=== PATIENT | female | born 1940 | race Hispanic/Latino ===

== ENCOUNTER 2017-06-08 07:38 | Outpatient (CLI) | payer MEDICARE ==
[2017-06-08] MEDS ORDERED: Iopamidol 370 76% 100 ML VIAL ONE (13:00)
== END 2017-06-08 07:39 | disposition home or self-care (01) ==
LOC: BICCT 07:38
PROVIDERS: ATTEND Family Medicine
DX: E27.9 Disorder of adrenal gland, unspecified (principal); K76.0 Fatty (change of) liver, not elsewhere classified; N28.1 Cyst of kidney, acquired
CPT/HCPCS: 74170

== ENCOUNTER 2017-10-18 21:24 | Inpatient (IN) | payer MEDICARE ==
--- NOTE | 2017-10-18 22:37 | RAD ---
HIP LEFT TWO VIEWS: 10/18/17 INDICATION: History of fall with left hip pain. COMPARISON: AP pelvic radiograph dated 08/02/16. IMPRESSION: 1. There is a mildly displaced left anterior iliac wing fracture. This is mildly comminuted and extends from the mid to posterior aspect of the iliac wing through the anterior superior iliac spine. No evidence of acetabular extension seen. 2. Stable left total hip arthroplasty with associated cerclage band. The displaced ununited left greater trochanteric fracture is unchanged in position from the comparsion. 3. Diffuse osteopenia. POS: [facility]
[2017-10-18] MEDS ORDERED: Morphine 10 MG/ML VIAL ONE (22:59)
--- NOTE | 2017-10-18 23:25 | RAD ---
CHEST ONE VIEW PORTABLE: 10/18/17 INDICATION: Preop for fall with left hip pain. COMPARISON: 11/30/16. IMPRESSION: No acute cardiopulmonary abnormality. COMMENTS: Chronic lung changes are stable to the comparison. Heart size and pulmonary vasculature are within no rmal limits. There is a suture anchor within the right humeral head likely related to prior rotator c uff repair. There is mild thoracolumbar scoliosis and spondylosis which is stable. POS: [facility]
[2017-10-18 23:45] LABS: #Basophils 0.1 thou/uL (0.0-0.2); #Lymphocytes 1.1 thou/uL (1.20-3.40); #Monocytes 0.5 thou/uL (0.11-0.59); #Neutrophils 9.9 thou/uL (1.40-6.50); %Basophils 0.5 % (0.0-1.0); %Eosinophils 0.3 % (0.0-10.0); %Lymphocytes 9.7 % (21.0-51.0); %Monocytes 4.7 % (0.0-10.0); %Neutrophils 84.9 % (42.0-75.0); Mean Corpuscular HGB CONC 35.4 g/dL (32.0-36.0); Mean Corpuscular Volume 87.6 fL (78.0-98.0); Platelet Count 187 thou/uL (130-400); RBC Distribution Width 12.6 % (11.5-14.5); Red Blood Cell (RBC) Count 4.19 mill/uL (4.20-5.40); White Blood Cell (WBC) Count 11.6 thou/uL (4.8-10.8)
[2017-10-19 00:05] LABS: ALT (SGPT) 38 U/L (8-55); AST (SGOT) 29 U/L (5-34); Albumin 4.3 g/dL (3.4-4.8); Alkaline Phosphatase 70 U/L (40-150); Anion Gap 17 mmol/L (10-20); BUN (Urea Nitrogen) 17 mg/dL (9.8-20.1); Bilirubin, Total 0.5 mg/dL (0.2-1.2); Calc. Creatinine Clearance 0 mL/min (70-130); Calcium 9.3 mg/dL (7.8-10.44); Carbon Dioxide 23 mmol/L (23-31); Chloride 105 mmol/L (98-107); Estimated GFR-MDRD 78; Globulin 2.7 g/dL (2.4-3.5); Glucose 311 mg/dL (83-110); Sodium 141 mmol/L (136-145)
[2017-10-19] MEDS ORDERED: traMADol HCl 50 MG TAB PO PRN (00:35)
[2017-10-19] MEDS ORDERED: Dextrose 5% in Water 1,000 ML IV PRN (00:37)
[2017-10-19] MEDS ORDERED: Dextrose 50% Abboject 50 ML SYRINGE SLOW IVP PRN (00:37)
[2017-10-19] MEDS ORDERED: Acetaminophen 500 MG TAB PO SCH (00:45)
[2017-10-19] MEDS ORDERED: hydrALAZINE 20 MG/ML VIAL SLOW IVP PRN (00:54)
[2017-10-19] MEDS ORDERED: Insulin Regular 300 UNITS/3 ML VIAL SC SCH (01:00)
[2017-10-19] MEDS ORDERED: Ibuprofen 600 MG TAB PO SCH (02:00)
[2017-10-19] MEDS: traMADol HCl 50 MG TAB PO SCH ×4 (02:05→20:32)
[2017-10-19] MEDS: Acetaminophen 500 MG TAB PO SCH ×4 (02:06→20:31)
[2017-10-19 02:50] VITALS: BMI 21.9
[2017-10-19] MEDS: Ondansetron ODT 4 MG TAB PO PRN ×2 (03:35→11:04)
[2017-10-19] MEDS: Ibuprofen 600 MG TAB PO SCH ×3 (03:44→20:31)
[2017-10-19 04:30] LABS: #Lymphocytes 1.1 thou/uL (1.20-3.40); #Monocytes 0.4 thou/uL (0.11-0.59); #Neutrophils 6.9 thou/uL (1.40-6.50); %Basophils 0.6 % (0.0-1.0); %Eosinophils 0.2 % (0.0-10.0); %Lymphocytes 13.3 % (21.0-51.0); %Monocytes 4.7 % (0.0-10.0); %Neutrophils 81.3 % (42.0-75.0); Mean Corpuscular HGB CONC 35.2 g/dL (32.0-36.0); Mean Corpuscular Hemoglobin 30.9 pg (27.0-31.0); Mean Corpuscular Volume 87.8 fL (78.0-98.0); Mean Platelet Volume 7.2 fL (7.4-10.4); Platelet Count 181 thou/uL (130-400); RBC Distribution Width 12.5 % (11.5-14.5); White Blood Cell (WBC) Count 8.4 thou/uL (4.8-10.8)
[2017-10-19 04:57] LABS: Anion Gap 15 mmol/L (10-20); BUN (Urea Nitrogen) 15 mg/dL (9.8-20.1); Calc. Creatinine Clearance 63 mL/min (70-130); Calcium 9.6 mg/dL (7.8-10.44); Carbon Dioxide 25 mmol/L (23-31); Chloride 106 mmol/L (98-107); Estimated GFR-MDRD Greater than 90; Glucose 224 mg/dL (83-110); Potassium 3.4 mmol/L (3.5-5.1); Sodium 143 mmol/L (136-145)
--- NOTE | 2017-10-19 05:01 | HP ---
DATE OF ADMISSION: 10/19/2017 ATTENDING PHYSICIAN: Dr. Prieto TRAUMA ACTIVATION: Not applicable. HISTORY OF PRESENT ILLNESS: This is a 77-year-old female who presented to [place] status post fall. The patient is a primarily Romanian speaking, elderly female with a history of vertigo whose da ughter at bedside provided the majority of the history. Per patient and daughter she was attempting to ambulate from her wheelchair, had an episode of vertigo, became unsteady and slipped and fell in t he bathtub. She landed on her left side. She denies head injury or loss of consciousness. She was evaluated in the emergency room and found to have a left iliac wing fracture. Orthopedic Surgery was notified and Trauma Services was asked to admit. Upon my evaluation, the patient has a chief compla int of left lateral hip pain. Pain is currently rated as a 6/10. ALLERGIES: ASPIRIN. CHRONIC MEDICAL ILLNESSES: Include hypertension, diabetes, hyperlipidemia, osteoarthritis, vertigo. MEDICATIONS: Lisinopril 30 mg p.o. daily, raloxifene 60 mg q.4h. p.r.n. pain, atorvastatin 10 mg p.o . daily, hydrochlorothiazide 12.5 mg p.o. daily, meclizine 25 mg 2 tabs p.o. p.r.n., Zofran 4 mg q.6 hours p.r.n. nausea, Ultram 50 mg p.o. daily, cyclobenzaprine 10 mg p.o. t.i.d., omeprazole 20 mg p.o . daily, metformin 1000 mg b.i.d., and ferrous sulfate 325 b.i.d. PAST SURGICAL HISTORY: Significant for left hip replacement, right shoulder repair, and hysterectomy . SOCIAL HISTORY: Patient lives with her son, primarily wheelchair bound. Denies alcohol, tobacco or illicit drug use. FAMILY HISTORY: Noncontributory in this age patient. REVIEW OF SYSTEMS: A 10 point review of systems was obtained and essentially negative except as benjamin cated in the HPI. PHYSICAL EXAMINATION: VITAL SIGNS: On evaluation heart rate 100, blood pressure 166/73, O2 sat 98% on room air, respirator y rate of 18. GENERAL: Elderly appearing female in no acute distress, resting in bed. HEAD: Normocephalic, atraumatic. EYES: Pupils are PERRL. Extraocular movements are intact. NECK: Supple. Trachea is midline. There is no midline tenderness to palpation. Range of motion wi thin normal limits for patient. CHEST: Chest is atraumatic, nontender to palpation. Normal work of breathing. Symmetric rise. CARDIOVASCULAR: Regular rate and rhythm, no obvious murmurs, rubs or gallops. GASTROINTESTINAL: Abdomen is atraumatic, soft, nontender, nondistended. BACK: Reported as being within normal limits. EXTREMITIES: Bilateral upper extremities within normal limits. Bilateral lower extremities within n ormal limits. Palpation of the pelvis demonstrates a left lateral hip pain with tenderness to palpat ion. Range of motion of the left hip is limited secondary to pain. She is neurovascularly intact di stal to the site of her injury. NEUROLOGIC: GCS is 15. No focal deficit is noted. LABORATORY DATA: WBC 11.6, hemoglobin 13.0, hematocrit 36.7, platelet count 187. Sodium 141, potass ium 4.0, chloride 105, carbon dioxide 23, BUN 17, creatinine 0.72, glucose 311. EKG with normal sinus rhythm, no ST elevation or signs of ischemia. RADIOLOGIC FINDINGS: Chest x-ray without acute cardiopulmonary process or traumatic injury. Hip x-r ay was read by Radiology as having a mildly displaced left anterior iliac wing fracture and osteopeni a. ASSESSMENT: 1. Status post mechanical fall. 2. Acute traumatic pain. 3. Left iliac wing fracture. 4. History of vertigo. 5. History of hypertension. 6. Diabetes with hyperglycemia. 7. History or osteoarthritis. PLAN: Admit to [place] [id number] for pain control and physical therapy and occupational therapy. I have disc ussed the case with Orthopedic Surgery. They plan for nonoperative treatment of the fracture at this time. They recommended weightbearing as tolerated. The patient should have a consistent carbohydra te diet. Sliding scale insulin, 10 units insulin now. Recheck blood sugar in 1 hour. Reconcile walker e medications. Plan for admission were discussed with the patient and family at bedside. All questions were answere d at the time of this dictation. Trauma attending has been notified of admission.
[2017-10-19 08:24] LABS: Phosphorus 3.3 mg/dL (2.3-4.7)
[2017-10-19] MEDS: Polyethylene Glycol 3350 17 GM Packet PO SCH (08:35)
[2017-10-19] MEDS: Senokot S 8.6-50 MG TAB PO SCH ×2 (08:35→20:32)
[2017-10-19] MEDS: Famotidine 20 MG TAB PO SCH ×2 (08:35→20:32)
[2017-10-19] MEDS ORDERED: Potassium Chloride 40 MEQ in Premix Bag 1 BAG IVPB SCH (08:45)
[2017-10-19] MEDS: Potassium Chloride 20 MEQ in Premix Bag 1 BAG IVPB SCH ×2 (10:06→14:55)
[2017-10-19] MEDS: Scopolamine 1.5 mg/72 hour Patch TD SCH (14:56)
--- NOTE | 2017-10-19 17:28 | CON ---
DATE OF CONSULTATION: 10/19/2017 ORTHOPEDIC CONSULTATION REQUESTING PHYSICIAN: Chu Prieto M.D. HISTORY OF PRESENT ILLNESS: The patient is a 77-year-old female who was examined while in her hospit al bed at [place] with her daughter at bedside. They report that on the evening of 10/18/2017, daysi contreras had an episode of vertigo became unsteady and slipped and fell in the bathtub, landing on her left side. There was no loss of consciousness. She had immediate left flank pain. Upon arrival at [facility] in evaluation, she was found to have pain at the left iliac wing and x-ray confirmed an iliac w ing fracture. As such, orthopedic consultation requested. The patient was unable to mobilize and christiana contreras family does not wish to pursue rehabilitation or residential and as such was admitted for pain control. PAST MEDICAL HISTORY: Remarkable for hypertension, diabetes, hyperlipidemia, and vertigo. PAST SURGICAL HISTORY: Remarkable for left total hip arthroplasty, right shoulder surgery as well as hysterectomy. MEDICATIONS: Lisinopril, raloxifene, atorvastatin, hydrochlorothiazide, meclizine, Zofran, Ultram, c yclobenzaprine, omeprazole, metformin, and iron sulfate. ALLERGIES: ASPIRIN. SOCIAL HISTORY: She lives with her son and mobilizes primarily with a wheelchair. Denies alcohol, t obacco or illicit drug use. FAMILY HISTORY: Noncontributory. REVIEW OF SYSTEMS: Denies recent fevers, chills or sweats. Denies chest pain or shortness of breath . She denies numbness or tingling in the lower extremities. PHYSICAL EXAMINATION: VITAL SIGNS: Temperature of 98.1, heart rate of 83, respiratory rate of 22, and blood pressure 151/7 1. HEENT: Atraumatic and normocephalic. HEART: Shows a regular rate and rhythm without murmur. LUNGS: Clear to auscultation bilaterally with good breath sounds. CHEST: Chest wall is nontender. PELVIS: Remarkable for severe point tender pain of the left iliac wing with any attempt to compressi on of the pelvis. The anterior superior iliac spine feels roughly symmetric when compared to the con tralateral side. The hip joint itself has relatively supple range of motion except for pain when I b ring the hip into full extension. The knee, ankle and foot on the left side are atraumatic. X-RAYS: AP lateral hip x-ray remarkable for a mildly displaced left anterior iliac wing fracture. ASSESSMENT: A 77-year-old, status post ground level fall in bathtub sustaining iliac wing fracture w ith minimal displacement. PLAN: Given the lack of displacement as well as the patient's baseline level of activity, I believe that nonsurgical management is a reasonable choice for this fracture. The patient may weightbear as tolerated bilateral lower extremities. We will mobilize her with physical therapy and when on oral p ain medications and mobilizing comfortably allow patient to be discharged to home today. I believe a ll questions were answered from both patient and her daughter.
[2017-10-19] MEDS: Meclizine HCl 25 MG TAB PO SCH (20:30)
[2017-10-19] MEDS: Enoxaparin Sodium 40 MG/0.4 ML SYRINGE SC SCH (20:30)
[2017-10-19] MEDS: Cyclobenzaprine 10 MG TAB PO SCH (20:31)
--- NOTE | 2017-10-19 21:33 | PRG ---
DATE OF SERVICE: 10/19/2017 ATTENDING PHYSICIAN: Sigifredo Tse DO. SUBJECTIVE: Ms. Serrano is a 77-year-old lady who has a history of vertigo who apparently slipped and fell in her bathtub last p.m. She was evaluated in the ER. Workup identified a left iliac wing fracture. She was seen by Orthopedic Surgery who recommended nonoperative treatment. She was admitted to the floor for pain control. PT and OT have been ordered. She still complains of some dizziness and nausea. OBJECTIVE: VITAL SIGNS: Temperature 97.3, pulse 86, respirations 12, O2 sat 94% on room air, blood pressure 145/81. GENERAL: Elderly female, lying on bed, in no acute distress. HEENT: Atraumatic, normocephalic. CARDIOVASCULAR: Regular rate and rhythm. CHEST: Respirations even and unlabored. Breath sounds normal. ABDOMEN: Soft, nontender, nondistended. Pain to left pelvis with palpation. EXTREMITIES: Moves all extremities. Cap refill brisk in all extremities. Neurovascularly intact. NEUROLOGIC: GCS 15. Awake, alert, oriented x3. No focal deficit. LABORATORY STUDIES: CBC, WBC 8.4, RBC 4.20, hemoglobin 13, hematocrit 36.9, platelets 181,000. Chemistry, sodium 143, potassium 3.4, chloride 106, carbon dioxide 25, BUN 15, creatinine 0.59, glucose 224, calcium 9.6, phosphorus 3.3, magnesium 2.0. ASSESSMENT: 1. Status post ground level fall. 2. Left iliac wing fracture. 3. Acute traumatic pain. 4. History of vertigo. 5. History of hypertension. 6. History of diabetes. 7. History of osteoarthritis. PLAN: 1. Continue oral analgesia. 2. Add scopolamine for dizziness and nausea. 3. Restart home medications. 4. Rehab referral for discharge planning. 5. Lovenox for DVT prophylaxis. 6. Pepcid for gastritis prophylaxis. 7. Replace electrolytes. Monitor and replace as indicated. 8. Restart home medications as indicated. The patient was seen and examined with Dr. Tse, who agrees with plan. [facility]
[2017-10-19] MEDS: HumaLOG 300 UNITS/3 ML VIAL SC PRN (22:29)
[2017-10-20] MEDS: traMADol HCl 50 MG TAB PO SCH ×4 (02:27→19:31)
[2017-10-20] MEDS: Acetaminophen 500 MG TAB PO SCH ×4 (02:29→19:31)
[2017-10-20] MEDS: Ibuprofen 600 MG TAB PO SCH ×3 (03:38→20:25)
[2017-10-20 05:31] LABS: Anion Gap 10 mmol/L (10-20); BUN (Urea Nitrogen) 13 mg/dL (9.8-20.1); Calc. Creatinine Clearance 70 mL/min (70-130); Calcium 8.9 mg/dL (7.8-10.44); Carbon Dioxide 27 mmol/L (23-31); Chloride 105 mmol/L (98-107); Estimated GFR-MDRD Greater than 90; Glucose 163 mg/dL (83-110); Magnesium 1.7 mg/dL (1.6-2.6); Phosphorus 3.9 mg/dL (2.3-4.7); Potassium 3.8 mmol/L (3.5-5.1); Sodium 138 mmol/L (136-145)
[2017-10-20] MEDS: Ferrous Sulfate 325 MG TAB PO SCH (08:09)
[2017-10-20] MEDS: Hydrochlorothiazide 25 MG TAB PO SCH (08:09)
[2017-10-20] MEDS: Senokot S 8.6-50 MG TAB PO SCH ×2 (08:10→20:26)
[2017-10-20] MEDS: Cyclobenzaprine 10 MG TAB PO SCH ×3 (08:10→20:26)
[2017-10-20] MEDS: Famotidine 20 MG TAB PO SCH ×2 (08:10→20:25)
[2017-10-20] MEDS: Atorvastatin Calcium 10 MG TAB PO SCH (08:10)
[2017-10-20] MEDS: Lisinopril 10 MG TAB PO SCH (08:11)
[2017-10-20] MEDS: Meclizine HCl 25 MG TAB PO SCH ×2 (08:11→20:26)
[2017-10-20] MEDS: Ondansetron ODT 4 MG TAB PO PRN (08:12)
[2017-10-20] MEDS: Polyethylene Glycol 3350 17 GM Packet PO SCH (09:54)
[2017-10-20] MEDS: Ascorbic Acid 500 mg Chewable Tablet PO SCH (09:54)
[2017-10-20] MEDS: HumaLOG 300 UNITS/3 ML VIAL SC PRN ×3 (13:04→20:27)
--- NOTE | 2017-10-20 17:29 | PRG ---
DATE OF SERVICE: 10/20/2017 ATTENDING PHYSICIAN: Dr. Sigifredo Tse. SUBJECTIVE: Ms. Serrano is a 77-year-old lady who has a history of vertigo who slipped and fell in he r bathtub 2 days ago. She sustained a left iliac wing fracture. Nonoperative management was recomme nded by Orthopedic Surgery. She was admitted to the hospital for pain control and physical therapy. She has been mobilizing with physical therapy. She initially complained of significant nausea and d izziness; however, this has resolved with scopolamine patch. PT and OT have been mobilizing with the patient. She reports the pain is better controlled. OBJECTIVE: VITAL SIGNS: Temperature 98.1, pulse 81, respirations 18, O2 sat 94% room air, blood pressure 132/77 . GENERAL: Elderly female lying in bed, in no acute distress. HEENT: Atraumatic, normocephalic. CARDIOVASCULAR: Regular rate and rhythm. CHEST: Respirations even and unlabored. Breath sounds normal. ABDOMEN: Soft, nontender, nondistended. Pain to the left pelvis with palpation or movement of left hip. EXTREMITIES: Moves all extremities well. Cap refill brisk in all extremities. Neurovascularly inta ct. NEUROLOGIC: GCS 15. Awake, alert, oriented x3. No focal deficit. ASSESSMENT: 1. Status post ground level fall. 2. Left iliac wing fracture. 3. Acute traumatic pain, improving. 4. History of vertigo. 5. History of hypertension. 6. History of diabetes. 7. History of osteoarthritis. PLAN: 1. Continue oral analgesia. 2. Continue mobilizing with PT, OT. 3. Continue Lovenox for DVT prophylaxis. 4. Continue Pepcid for gastritis prophylaxis. 5. Discussed with . The patient is pending approval for disposition to rehabilitation. Donny arellano this will happen in the next 1-2 days. The patient was seen and examined with Dr. Tse, who ag best with plan.
[2017-10-20] MEDS: Enoxaparin Sodium 40 MG/0.4 ML SYRINGE SC SCH (20:25)
[2017-10-21] MEDS: Acetaminophen 500 MG TAB PO SCH ×4 (01:40→19:05)
[2017-10-21] MEDS: traMADol HCl 50 MG TAB PO SCH ×4 (01:41→19:05)
[2017-10-21] MEDS: Ibuprofen 600 MG TAB PO SCH ×3 (04:17→21:50)
[2017-10-21] MEDS: HumaLOG 300 UNITS/3 ML VIAL SC PRN ×3 (05:35→18:19)
[2017-10-21] MEDS: Senokot S 8.6-50 MG TAB PO SCH ×2 (08:40→21:49)
[2017-10-21] MEDS: Ferrous Sulfate 325 MG TAB PO SCH (08:40)
[2017-10-21] MEDS: Ascorbic Acid 500 mg Chewable Tablet PO SCH (08:40)
[2017-10-21] MEDS: Polyethylene Glycol 3350 17 GM Packet PO SCH (08:40)
[2017-10-21] MEDS: Hydrochlorothiazide 25 MG TAB PO SCH (08:41)
[2017-10-21] MEDS: Lisinopril 10 MG TAB PO SCH (08:42)
[2017-10-21] MEDS: Cyclobenzaprine 10 MG TAB PO SCH ×3 (08:42→21:49)
[2017-10-21] MEDS: Atorvastatin Calcium 10 MG TAB PO SCH (08:43)
[2017-10-21] MEDS: Meclizine HCl 25 MG TAB PO SCH ×2 (08:43→21:49)
[2017-10-21] MEDS: Famotidine 20 MG TAB PO SCH ×2 (08:43→21:50)
[2017-10-21] MEDS: Enoxaparin Sodium 40 MG/0.4 ML SYRINGE SC SCH (21:49)
[2017-10-22] MEDS: traMADol HCl 50 MG TAB PO SCH ×4 (01:55→19:32)
[2017-10-22] MEDS: Acetaminophen 500 MG TAB PO SCH ×4 (01:56→18:50)
[2017-10-22] MEDS: Ibuprofen 600 MG TAB PO SCH ×3 (03:17→20:38)
[2017-10-22] MEDS: HumaLOG 300 UNITS/3 ML VIAL SC PRN ×4 (06:45→21:17)
[2017-10-22] MEDS: Famotidine 20 MG TAB PO SCH ×2 (08:54→20:40)
[2017-10-22] MEDS: Ascorbic Acid 500 mg Chewable Tablet PO SCH (08:54)
[2017-10-22] MEDS: Ferrous Sulfate 325 MG TAB PO SCH (08:54)
[2017-10-22] MEDS: Atorvastatin Calcium 10 MG TAB PO SCH (08:54)
[2017-10-22] MEDS: Meclizine HCl 25 MG TAB PO SCH ×2 (08:55→20:39)
[2017-10-22] MEDS: Senokot S 8.6-50 MG TAB PO SCH ×2 (08:55→20:40)
[2017-10-22] MEDS: Cyclobenzaprine 10 MG TAB PO SCH ×3 (08:55→20:38)
[2017-10-22] MEDS: Polyethylene Glycol 3350 17 GM Packet PO SCH (08:56)
[2017-10-22] MEDS: Hydrochlorothiazide 25 MG TAB PO SCH (09:00)
[2017-10-22] MEDS: Lisinopril 10 MG TAB PO SCH (09:01)
[2017-10-22] MEDS: Scopolamine 1.5 mg/72 hour Patch TD SCH (13:45)
--- NOTE | 2017-10-22 20:22 | PRG ---
DATE OF SERVICE: 10/22/2017 SUBJECTIVE: The patient is status post ground level fall in which sustained an iliac wing fracture. She has been treated conservatively. Since being here, there were initial issues trying to get her pain controlled, which they are now controlled and there was discussion as far as placement. The con sensus in agreement with the family and now is that the patient will go home with home health. This is being arranged by case management and is predicted to happen tomorrow on Monday10/23/2017. PHYSICAL EXAMINATION: VITAL SIGNS: Temperature is 97.8, heart rate 82, blood pressure 108/55, respirations 16, oxygen satu ration 95% on room air. GENERAL: The patient is resting comfortably, has no complaints at this time. HEENT: Unremarkable. LUNGS: Clear to auscultation. HEART: Regular rate and rhythm. ABDOMEN: Soft, flat, nontender. EXTREMITIES: Neurovascularly intact x4. LABORATORY DATA: There are no labs or radiographs to review this morning. ASSESSMENT AND PLAN: 1. Status post ground level fall. 2. Left iliac wing fracture. 3. Multiple comorbidities. PLAN: Will be to continue supportive care, pain management as currently in place and we will await f inal placement decision and hopefully discharge home tomorrow.
[2017-10-22] MEDS: Enoxaparin Sodium 40 MG/0.4 ML SYRINGE SC SCH (20:50)
[2017-10-22] MEDS ORDERED: Enoxaparin Sodium 40 MG/0.4 ML SYRINGE SC SCH (21:00)
[2017-10-23] MEDS: traMADol HCl 50 MG TAB PO SCH ×3 (01:24→13:43)
[2017-10-23] MEDS: Acetaminophen 500 MG TAB PO SCH ×3 (01:24→13:42)
[2017-10-23] MEDS: Ibuprofen 600 MG TAB PO SCH ×2 (04:43→11:54)
[2017-10-23] MEDS: HumaLOG 300 UNITS/3 ML VIAL SC PRN ×2 (06:37→11:55)
[2017-10-23 07:46] VITALS: TEMP 98.2
[2017-10-23] MEDS: Senokot S 8.6-50 MG TAB PO SCH (09:26)
[2017-10-23] MEDS: Polyethylene Glycol 3350 17 GM Packet PO SCH (09:26)
[2017-10-23] MEDS: Hydrochlorothiazide 25 MG TAB PO SCH (09:27)
[2017-10-23] MEDS: Lisinopril 10 MG TAB PO SCH (09:28)
[2017-10-23] MEDS: Ferrous Sulfate 325 MG TAB PO SCH (09:28)
[2017-10-23] MEDS: Famotidine 20 MG TAB PO SCH (09:28)
[2017-10-23] MEDS: Meclizine HCl 25 MG TAB PO SCH (09:28)
[2017-10-23] MEDS: Ascorbic Acid 500 mg Chewable Tablet PO SCH (09:28)
[2017-10-23] MEDS: Cyclobenzaprine 10 MG TAB PO SCH ×2 (09:29→15:21)
[2017-10-23] MEDS: Atorvastatin Calcium 10 MG TAB PO SCH (09:29)
[2017-10-23 12:19] VITALS: BP 123/59
== END 2017-10-23 18:40 | disposition home health service (06) | DRG 536 ==
LOC: ERS 21:24 → SURG A 10-19 01:29
PROVIDERS: ADMIT Surgery; ATTEND Surgery
DX: S32.302A Unspecified fracture of left ilium, initial encounter for closed fracture (principal); I10 Essential (primary) hypertension; E11.9 Type 2 diabetes mellitus without complications; E78.5 Hyperlipidemia, unspecified; Z96.642 Presence of left artificial hip joint; W18.2XXA Fall in (into) shower or empty bathtub, initial encounter; Y93.E1 Activity, personal bathing and showering; Y92.012 Bathroom of single-family (private) house as the place of occurrence of the external cause
CPT/HCPCS: 36415; 36416; 71045; 80048; 80053; 83735; 84100; 85025; 93005; 96372; G8978-GP-CM; G8979-GP-CK; G8987-GO-CM; G8988-GO-CK; J1650; J1815; J2270; J3480; Q0162

== ENCOUNTER 2017-12-29 17:07 | Outpatient (CLI) | payer MEDICARE ==
--- NOTE | 2017-12-29 19:40 | RAD ---
THREE VIEWS OF THE PELVIS 12/29/17 INDICATION: History of closed sacral fracture. COMPARISON: Left hip radiograph dated 10/18/2017. FINDINGS: Again seen is diffuse osteopenia. There has been some interval healing of the mildly displaced left anterior iliac wing fracture. Left hip prosthesis is not appreciably changed. Calcific tendinosis involving the right hamstring origin i s stable. There is a mild amount of retained stool within the colon. Mild degenerative change of both SI joints are again seen. IMPRESSION: 1. Evidence of some interval healing without evidence of definite displacement involving the lef t anterior iliac wing fracture. 2. Stable diffuse osteopenia. 3. Stable degenerative changes as above. POS: [facility]
== END 2017-12-29 17:08 | disposition home or self-care (01) ==
LOC: RAD 17:07
PROVIDERS: ATTEND Family Medicine
DX: S32.10XA Unspecified fracture of sacrum, initial encounter for closed fracture (principal); S32.302D Unspecified fracture of left ilium, subsequent encounter for fracture with routine healing; M85.859 Other specified disorders of bone density and structure, unspecified thigh; M53.3 Sacrococcygeal disorders, not elsewhere classified
CPT/HCPCS: 72190

== ENCOUNTER 2018-05-30 16:19 | Emergency (ER) | payer MEDICARE ==
[~2018-05-30 16:19] MED LIST: ISOVUE-370 76%-LOCM 1 ML ONE
[2018-05-30 17:42] LABS: #Lymphocytes 0.8 thou/uL (1.20-3.40); #Monocytes 0.2 thou/uL (0.11-0.59); #Neutrophils 6.2 thou/uL (1.40-6.50); %Basophils 0.3 % (0.0-1.0); %Eosinophils 0.5 % (0.0-10.0); %Lymphocytes 10.6 % (21.0-51.0); %Neutrophils 85.7 % (42.0-75.0); Hemoglobin 13.9 g/dL (12.0-16.0); Mean Corpuscular HGB CONC 35.2 g/dL (32.0-36.0); Mean Corpuscular Hemoglobin 30.2 pg (27.0-31.0); Mean Corpuscular Volume 85.8 fL (78.0-98.0); Mean Platelet Volume 7.7 fL (7.4-10.4); Platelet Count 185 thou/uL (130-400); RBC Distribution Width 12.1 % (11.5-14.5); Red Blood Cell (RBC) Count 4.61 mill/uL (4.20-5.40); White Blood Cell (WBC) Count 7.2 thou/uL (4.8-10.8)
[2018-05-30 18:11] LABS: ALT (SGPT) 33 U/L (8-55); AST (SGOT) 28 U/L (5-34); Albumin 4.4 g/dL (3.4-4.8); Alkaline Phosphatase 81 U/L (40-150); Anion Gap 18 mmol/L (10-20); BUN (Urea Nitrogen) 10 mg/dL (9.8-20.1); Bilirubin, Total 0.5 mg/dL (0.2-1.2); Calc. Creatinine Clearance 0 mL/min (70-130); Calcium 9.1 mg/dL (7.8-10.44); Carbon Dioxide 24 mmol/L (23-31); Chloride 97 mmol/L (98-107); Estimated GFR-MDRD Greater than 90; Globulin 2.8 g/dL (2.4-3.5); Glucose 179 mg/dL (83-110); Lipase 77 U/L (8-78); Potassium 3.7 mmol/L (3.5-5.1); Protein, Total 7.2 g/dL (6.0-8.3); Sodium 135 mmol/L (136-145)
[2018-05-30] MEDS ORDERED: Ondansetron PF 4 MG/2 ML Vial ONE (19:20)
--- NOTE | 2018-05-30 20:59 | CT ---
CT OF THE ABDOMEN AND PELVIS WITH IV CONTRAST: 05/30/18 INDICATION: History of abdominal pain and vomiting. COMPARISON: None. FINDINGS: There is mild bibasilar atelectasis, left greater than right. There is fatty infiltration of the liver. The pancreas, right adrenal gland, and spleen appears within normal limits. There is a 2.1 cm nodule within the left adrenal gland. There is a 1.2 cm cyst involving the superior pole of the left kidney. There is a tiny 1 cm cyst involving the inferior pole of the right kidney. No free fluid or enlarged lymph nodes are evident. Beam scattered artifact from the patient's left total hip prosthesis slightly limits image detail of the pelvis. There are scattered diverticula involving the colon without evidence of active diverticulitis. There is a normal appendix in the right lower quadrant. Visualized aspects of the bladder are unremarkable appearing. There is diffuse osteopenia. There is scattered degenerative and osteoarthritic change. There is mild thoracolumbar scoliosis. There is a bony hemangioma within the L3 vertebra. IMPRESSION: 1. No acute CT explanation for the patient's abdominal pain. 2. Fatty liver. 3. 2.1 cm left adrenal nodule. This is incompletely characterized. CT of the abdomen utilizing a drenal mass protocol may be helpful for further characterization. 4. Bilateral renal cysts. 5. Colonic diverticulosis. 6. Bibasilar atelectasis. POS: [facility]
[2018-05-30 21:28] LABS: Bilirubin Negative (Negative); Blood, Urine Negative (Negative); Clarity CLEAR (Clear); Glucose, Urine (Dipstick) Negative (Negative); Leukocyte Negative (Negative); Nitrite Negative (Negative); Protein, Urine (Dipstick) Negative (Neg-Trace); Specific Gravity, Urine 1.022 (1.002-1.036); Urobilinogen 0.2 mg/dL (0.2-1.0); pH, Urine 7.5 (5.0-9.0)
== END 2018-05-30 21:25 | disposition home or self-care (01) ==
LOC: ERS 16:19
DX: R11.2 Nausea with vomiting, unspecified (principal); E11.9 Type 2 diabetes mellitus without complications; E78.5 Hyperlipidemia, unspecified; I10 Essential (primary) hypertension; M81.0 Age-related osteoporosis without current pathological fracture; Z79.899 Other long term (current) drug therapy; Z79.84 Long term (current) use of oral hypoglycemic drugs
CPT/HCPCS: 36415; 74177; 80053; 81003; 83605; 83690; 84484; 85025; 93005; 96361; 96372; 96374; J0500; J2405; Q9966

== ENCOUNTER 2018-10-08 19:25 | Emergency (ER) | payer MEDICARE ==
[2018-10-08 20:21] LABS: #Lymphocytes 0.9 thou/uL (1.20-3.40); #Monocytes 0.2 thou/uL (0.11-0.59); #Neutrophils 7.6 thou/uL (1.40-6.50); %Basophils 0.2 % (0.0-1.0); %Eosinophils 0.2 % (0.0-10.0); %Lymphocytes 10.4 % (21.0-51.0); %Monocytes 2.1 % (0.0-10.0); %Neutrophils 87.1 % (42.0-75.0); Hemoglobin 15.3 g/dL (12.0-16.0); Mean Corpuscular HGB CONC 35.2 g/dL (32.0-36.0); Mean Corpuscular Hemoglobin 30.6 pg (27.0-31.0); Mean Corpuscular Volume 86.8 fL (78.0-98.0); Mean Platelet Volume 7.2 fL (7.4-10.4); Platelet Count 227 thou/uL (130-400); RBC Distribution Width 12.6 % (11.5-14.5); White Blood Cell (WBC) Count 8.7 thou/uL (4.8-10.8)
[2018-10-08 20:43] LABS: ALT (SGPT) 30 U/L (8-55); AST (SGOT) 25 U/L (5-34); Albumin 4.7 g/dL (3.4-4.8); Alkaline Phosphatase 112 U/L (40-150); Anion Gap 19 mmol/L (10-20); BUN (Urea Nitrogen) 15 mg/dL (9.8-20.1); Bilirubin, Total 0.7 mg/dL (0.2-1.2); Calc. Creatinine Clearance 0 mL/min (70-130); Calcium 10.1 mg/dL (7.8-10.44); Carbon Dioxide 25 mmol/L (23-31); Chloride 100 mmol/L (98-107); Estimated GFR-MDRD 86; Globulin 3.3 g/dL (2.4-3.5); Glucose 319 mg/dL (83-110); Potassium 3.7 mmol/L (3.5-5.1); Sodium 140 mmol/L (136-145)
[2018-10-08] MEDS ORDERED: Ondansetron PF 4 MG/2 ML Vial ONE (20:55)
--- NOTE | 2018-10-08 21:22 | CT ---
Head CT without contrast 10/08/2018: HISTORY: Dizziness and vomiting TECHNIQUE: Axial CT imaging at 5 mm intervals from vertex through skull base without contrast FINDINGS: Imaged paranasal sinuses and mastoid air cells are well aerated. No displaced calvarial fra cture. There is moderate diffuse cerebral volume loss with associated prominence of the CSF containing spaces. There is periventricular and deep white matter hypodensity suggesting small vessel disease. IMPRESSION: No acute findings.
[2018-10-08 21:49] LABS: Bacteria/HPF None Seen HPF (None Seen); Bilirubin Negative (Negative); Blood, Urine Negative (Negative); Clarity Clear (Clear); Glucose, Urine (Dipstick) Greater than 1000 mg/dL (Negative); Leukocyte Negative Leu/uL (Negative); Nitrite Negative (Negative); Protein, Urine (Dipstick) 70 mg/dL (Neg-Trace); RBC/HPF 0-3 HPF (0-3); Squamous Epithelial None Seen HPF (0-3); Urobilinogen Normal mg/dL (Less than 2); WBC/HPF 0-3 HPF (0-3)
--- NOTE | 2018-10-08 22:39 | RAD ---
Portable frontal chest radiograph: 10/08/2018 COMPARISON: 10/18/2017 HISTORY: Dizziness FINDINGS: Lungs are clear. Heart and mediastinal contours appear within normal limits. Stable atheros clerotic calcification of the aortic arch and degenerative change at the thoracolumbar junction with probable mild levoscoliosis. IMPRESSION: No acute findings.
== END 2018-10-08 23:05 | disposition home or self-care (01) ==
LOC: ERS 19:25
DX: R42 Dizziness and giddiness (principal); R11.2 Nausea with vomiting, unspecified; E11.9 Type 2 diabetes mellitus without complications; E78.5 Hyperlipidemia, unspecified; I10 Essential (primary) hypertension; Z79.899 Other long term (current) drug therapy; Z79.4 Long term (current) use of insulin
CPT/HCPCS: 36415; 51701; 70450; 71045; 80053; 81003; 81015; 82550; 84484; 85025; 96361; 96374; A4353; J2405

== ENCOUNTER 2020-04-02 23:03 | Emergency (ER) | payer MEDICARE ==
[2020-04-02] MEDS ORDERED: Ondansetron PF 4 MG/2 ML Vial ONE (23:23)
[2020-04-02 23:31] LABS: #Basophils 0.1 thou/uL (0.0-0.2); #Lymphocytes 0.8 thou/uL (1.20-3.40); #Monocytes 0.3 thou/uL (0.11-0.59); #Neutrophils 9.1 thou/uL (1.40-6.50); %Basophils 0.8 % (0.0-1.0); %Eosinophils 0.2 % (0.0-10.0); %Lymphocytes 7.8 % (21.0-51.0); %Neutrophils 88.2 % (42.0-75.0); Hemoglobin 12.6 g/dL (12.0-16.0); Mean Corpuscular HGB CONC 35.2 g/dL (32.0-36.0); Mean Corpuscular Hemoglobin 30.5 pg (27.0-31.0); Mean Corpuscular Volume 86.7 fL (78.0-98.0); Mean Platelet Volume 7.5 fL (7.4-10.4); Platelet Count 176 thou/uL (130-400); Red Blood Cell (RBC) Count 4.15 mill/uL (4.20-5.40); White Blood Cell (WBC) Count 10.3 thou/uL (4.8-10.8)
[2020-04-03 00:04] LABS: ALT (SGPT) 13 U/L (8-55); AST (SGOT) 11 U/L (5-34); Albumin 3.6 g/dL (3.4-4.8); Alkaline Phosphatase 86 U/L (40-110); Anion Gap 13 mmol/L (10-20); BUN (Urea Nitrogen) 14 mg/dL (9.8-20.1); Bilirubin, Total 0.5 mg/dL (0.2-1.2); Calc. Creatinine Clearance 0 mL/min (70-130); Calcium 7.8 mg/dL (7.8-10.44); Carbon Dioxide 23 mmol/L (23-31); Chloride 101 mmol/L (98-107); Globulin 2.6 g/dL (2.4-3.5); Glucose 412 mg/dL (83-110); Lipase 128 U/L (8-78); Potassium 3.4 mmol/L (3.5-5.1); Protein, Total 6.2 g/dL (5.8-8.1); Sodium 134 mmol/L (136-145)
--- NOTE | 2020-04-03 07:26 | CT ---
PRELIMINARY REPORT/[facility]/EMERGENCY AFTER HOURS PROCEDURE EXAM: CT Abdomen and Pelvis with Intravenous Contrast CLINICAL HISTORY: C/O N/V/D STARTED AT 2100 STOMACH CRAMPING AND VOMITING TECHNIQUE: Axial computed tomography images of the abdomen and pelvis with intravenous contrast. CONTRAST: With; ISOVUE 370,100mL COMPARISON: CTSR - CT ABDOMEN PELVIS W CON - 05/30/2018 08:13 PM CDT FINDINGS: LUNG BASES: No basilar airspace consolidation or pleural effusion. Bibasilar interstitial opacities. Cardiomega ly LIVER: Diffuse decreased parenchymal attenuation of the liver. GALLBLADDER AND BILE DUCTS: Unremarkable. No calcified stone. No ductal dilation. PANCREAS: Unremarkable. SPLEEN: Unremarkable. ADRENAL GLANDS: 1.9 x 2.5 cm intermediate density mass arising from the left adrenal gland. Normal right adrenal gla nd. KIDNEYS, URETERS, AND BLADDER: Unremarkable. No hydronephrosis or nephrolithiasis. No ureteral or bladder calculi. STOMACH AND BOWEL: No obstruction. No wall thickening. Diffuse scattered colonic diverticulosis. No CT evidence of col itis or acute diverticulitis. APPENDIX: No CT evidence for appendicitis. PERITONEUM: No free fluid. No free air. LYMPH NODES: No lymphadenopathy. REPRODUCTIVE: Uterus not visualized. No suspicious adnexal mass. Streak artifact from adjacent left hip hardware limits detail pelvic evaluation. VASCULATURE: No aortic aneurysm. Scattered atherosclerotic vascular disease. BONES: Healing fracture of the left iliac bone. Degenerative changes of the spine and hips. L3 intraosseou s hemangioma. Suspicious osseous abnormality. Left hip arthroplasty hardware. ABDOMINAL WALL AND SOFT TISSUES: Unremarkable. IMPRESSION: 1. No acute intra-abdominal or pelvic abnormality. 2. Scattered colonic diverticuli without evidence of acute diverticulitis. Evaluation of pelvic str uctures is limited secondary to streak artifact from adjacent left hip arthroplasty hardware. 3. Indeterminate mass in the left adrenal gland measuring 1.9 x 2.5 cm. This appears stable from exam. Correlate with biochemical markers and consider dedicated adrenal CT for further characterization. 4. Hepatic steatosis. 5. Healing fracture the left iliac bone. ELECTRONICALLY SIGNED BY: Lamberto Edwards DO Apr 03, 2020 12:22:21 AM PHARMACY TECHNOLOGY INSTRUCTOR This report is intended for review by the ordering physician only, in accordance of law. If you recei ve this report in error, please call [facility] at [phone]. FINAL REPORT EXAM: CT ABDOMEN AND PELVIS HISTORY: Nausea vomiting and diarrhea. Stomach cramping. COMPARISON: 05/30/2018 Procedure: Multiple contiguous axial images were obtained and a CT of the abdomen and pelvis with IV contrast. C oronal reformats were performed. FINDINGS: Lower Chest: Chronic changes in the lung bases Vessels: Atherosclerosis. Normal caliber aorta Heart: Normal heart size. No significant pericardial fluid Abdomen: Portal vein:Patent Gallbladder: No calcified gallstones. Normal caliber wall. Liver: Diffuse hypoattenuation due to hepatic steatosis Pancreas: within normal limits. Spleen: within normal limits. Adrenals: within normal limits. Kidneys: Stable left adrenal mass. Peritoneum: No ascites or free air, no fluid collection. Bowel: Limited evaluation due to the lack of oral contrast administration. No evidence of bowel obstr uction. Ileocecal junction is unremarkable. Normal caliber appendix. Scattered fecal material in a nondistended, nondilated colon. Diverticulosis, without evidence of diverticulitis. Mesentery and Retroperitoneum: No enlarged mesenteric or retroperitoneal lymph nodes. Abdominal Wall: within normal limits. Pelvis: Reproductive Organs: Reproductive organs are unremarkable. Pelvis: No mass, lymphadenopathy, free air or free fluid. Bladder: within normal limits. Bones: within normal limits. IMPRESSION: 1. This report is in agreement with initial report by [facility]. 2. No evidence of acute intraabdominal\pelvic abnormality. Transcribed Date/Time: 04/03/2020 7:34 AM
== END 2020-04-03 01:35 | disposition home or self-care (01) ==
LOC: ERS 23:03
DX: R11.2 Nausea with vomiting, unspecified (principal); E11.65 Type 2 diabetes mellitus with hyperglycemia; E78.5 Hyperlipidemia, unspecified; I10 Essential (primary) hypertension; M19.90 Unspecified osteoarthritis, unspecified site
CPT/HCPCS: 36415; 74177; 80053; 83690; 85025; 94760; 96374; J2405

== ENCOUNTER 2021-02-07 09:01 | Inpatient (IN) | payer MEDICARE, SELFPAY ==
[2021-02-07] MEDS ORDERED: Fentanyl 100 MCG/2 ML VIAL ONE ×3 (10:33→14:36)
[2021-02-07 10:55] LABS: #Lymphocytes 0.7 thou/uL (1.20-3.40); #Monocytes 0.3 thou/uL (0.11-0.59); #Neutrophils 6.8 thou/uL (1.40-6.50); %Basophils 0.5 % (0.0-1.0); %Eosinophils 0.2 % (0.0-10.0); %Lymphocytes 8.5 % (21.0-51.0); %Monocytes 3.5 % (0.0-10.0); %Neutrophils 87.2 % (42.0-75.0); Hemoglobin 13.9 g/dL (12.0-16.0); Mean Corpuscular HGB CONC 35.4 g/dL (32.0-36.0); Mean Corpuscular Hemoglobin 31.3 pg (27.0-31.0); Mean Corpuscular Volume 88.6 fL (78.0-98.0); Mean Platelet Volume 7.3 fL (7.4-10.4); Platelet Count 202 thou/uL (130-400); RBC Distribution Width 11.9 % (11.5-14.5); Red Blood Cell (RBC) Count 4.44 mill/uL (4.20-5.40); White Blood Cell (WBC) Count 7.8 thou/uL (4.8-10.8)
[2021-02-07] MEDS ORDERED: Ketamine 50 MG/ML (10ML VIAL) ONE (11:00)
[2021-02-07 11:19] LABS: ALT (SGPT) 20 U/L (8-55); AST (SGOT) 14 U/L (5-34); Albumin 3.8 g/dL (3.4-4.8); Alkaline Phosphatase 91 U/L (40-110); Anion Gap 15 mmol/L (10-20); BUN (Urea Nitrogen) 12 mg/dL (9.8-20.1); Bilirubin, Total 0.5 mg/dL (0.2-1.2); Calc. Creatinine Clearance 0 mL/min (70-130); Carbon Dioxide 24 mmol/L (23-31); Chloride 101 mmol/L (98-107); Glucose 429 mg/dL (83-110); Protein, Total 6.8 g/dL (5.8-8.1); Sodium 136 mmol/L (136-145)
[2021-02-07] MEDS ORDERED: Insulin Regular 300 UNITS/3 ML VIAL ONE (11:29)
[2021-02-07] MEDS ORDERED: hydrALAZINE 20 MG/ML VIAL SLOW IVP PRN (11:56)
[2021-02-07] MEDS ORDERED: Ondansetron ODT 4 MG TAB PO PRN (11:56)
[2021-02-07] MEDS ORDERED: Morphine 2 MG/ML VIAL SLOW IVP PRN ×2 (11:56→12:00)
[2021-02-07] MEDS ORDERED: traMADol HCl 50 MG TAB PO PRN (11:59)
[2021-02-07] MEDS: traMADol HCl 50 MG TAB PO SCH ×3 (12:00→23:35)
[2021-02-07] MEDS ORDERED: Ibuprofen 600 MG TAB PO SCH (12:00)
[2021-02-07] MEDS: Acetaminophen 325 MG TAB PO SCH ×3 (12:00→23:34)
[2021-02-07] MEDS ORDERED: Morphine 4 MG/ML VIAL SLOW IVP PRN (12:15)
[2021-02-07] MEDS ORDERED: Glycopyrrolate 0.2 MG/ML 5 ML SYRINGE ONE (12:19)
[2021-02-07] MEDS ORDERED: PROPOFOL 200 MG/20 ML VIAL ONE (12:19)
[2021-02-07] MEDS ORDERED: Dexamethasone 20 MG/5 ML VIAL ONE (12:19)
[2021-02-07] MEDS ORDERED: Rocuronium Bromide 10 MG/ML (10ML VIAL) ONE (12:19)
[2021-02-07] MEDS ORDERED: Ondansetron PF 4 MG/2 ML Vial ONE (12:19)
[2021-02-07] MEDS ORDERED: Lidocaine 1% PF 5 ML VIAL ONE (12:19)
[2021-02-07] MEDS ORDERED: EPINEPHrine 1 MG/ML AMP ONE (12:37)
[2021-02-07] MEDS ORDERED: Bupivacaine PF 0.5% 30 ML VIAL ONE (12:37)
[2021-02-07 12:52] LABS: SARS-CoV-2 NAA Rapid Test Not Detected (NotDetected)
[2021-02-07] MEDS: Ibuprofen 200 MG TAB PO SCH ×2 (14:00→20:58)
[2021-02-07] MEDS ORDERED: HYDROcodone/Acetaminophen 10/325 mg Tablet PO PRN ×2 (14:25)
[2021-02-07] MEDS ORDERED: [UNRECOGNIZED DRUG - REMARK] FS PRN (14:30)
[2021-02-07] MEDS ORDERED: TETANUS AND DIPHTHERIA TOX/PF 0.5 ML DISP.SYRIN IM SCH (14:30)
[2021-02-07] MEDS ORDERED: Promethazine HCl 25 MG/ML VIAL ONE (15:06)
[2021-02-07] MEDS ORDERED: Non-Formulary Medication 1 EACH PO PRN (15:33)
[2021-02-07] MEDS ORDERED: Ondansetron HCl/PF 4 MG/2 ML Vial IVP PRN (15:45)
[2021-02-07] MEDS ORDERED: Promethazine HCl 25 MG/ML VIAL IM/IV PRN (15:45)
[2021-02-07 16:09] VITALS: BMI 17.3
[2021-02-07] MEDS ORDERED: Non-Formulary Item 1 EACH (Metformin Hcl [Metformin Hcl] 1,000 MG Tablet) PO SCH (17:00)
[2021-02-07] MEDS: metFORMIN 500 MG TAB PO SCH (17:35)
[2021-02-07] MEDS ORDERED: Dextrose 5% in Water 1,000 ML IV PRN (20:07)
[2021-02-07] MEDS ORDERED: Dextrose 50% Abboject 50 ML SYRINGE SLOW IVP PRN (20:07)
[2021-02-07] MEDS ORDERED: HumaLOG 300 UNITS/3 ML VIAL SC PRN (20:07)
[2021-02-07] MEDS ORDERED: Insulin Regular 300 UNITS/3 ML VIAL SC SCH (20:15)
[2021-02-07] MEDS: Meclizine HCl 25 MG TAB PO SCH (20:58)
[2021-02-07] MEDS: Senokot S 8.6-50 MG TAB PO SCH (20:58)
[2021-02-07] MEDS ORDERED: Lantus 1000 UNITS/10 ML VIAL SC SCH (21:00)
[2021-02-07] MEDS: CEFAZOLIN 2 GM, Admixture Fee 1 EACH in Sodium Chloride 0.9% 100 ML IVPB SCH (21:17)
[2021-02-08] MEDS: CEFAZOLIN 2 GM, Admixture Fee 1 EACH in Sodium Chloride 0.9% 100 ML IVPB SCH ×2 (05:20→14:55)
[2021-02-08] MEDS: Ibuprofen 200 MG TAB PO SCH ×2 (05:21→14:56)
[2021-02-08] MEDS: traMADol HCl 50 MG TAB PO SCH ×2 (05:21→12:10)
[2021-02-08] MEDS: Acetaminophen 325 MG TAB PO SCH ×2 (05:22→12:09)
[2021-02-08 06:46] LABS: #Lymphocytes 1.5 thou/uL (1.20-3.40); #Monocytes 0.9 thou/uL (0.11-0.59); #Neutrophils 8.8 thou/uL (1.40-6.50); %Basophils 0.3 % (0.0-1.0); %Eosinophils 0.1 % (0.0-10.0); %Lymphocytes 13.1 % (21.0-51.0); %Monocytes 7.6 % (0.0-10.0); %Neutrophils 78.8 % (42.0-75.0); Hemoglobin 11.9 g/dL (12.0-16.0); Mean Corpuscular HGB CONC 34.7 g/dL (32.0-36.0); Mean Corpuscular Hemoglobin 31.3 pg (27.0-31.0); Mean Corpuscular Volume 90.4 fL (78.0-98.0); Mean Platelet Volume 7.2 fL (7.4-10.4); Platelet Count 201 thou/uL (130-400); RBC Distribution Width 12.1 % (11.5-14.5); Red Blood Cell (RBC) Count 3.79 mill/uL (4.20-5.40); White Blood Cell (WBC) Count 11.1 thou/uL (4.8-10.8)
[2021-02-08 07:07] LABS: ALT (SGPT) 15 U/L (8-55); AST (SGOT) 11 U/L (5-34); Albumin 3.2 g/dL (3.4-4.8); Alkaline Phosphatase 71 U/L (40-110); Anion Gap 12 mmol/L (10-20); BUN (Urea Nitrogen) 14 mg/dL (9.8-20.1); Bilirubin, Total 0.3 mg/dL (0.2-1.2); Calc. Creatinine Clearance 49 mL/min (70-130); Calcium 8.6 mg/dL (7.8-10.44); Carbon Dioxide 24 mmol/L (23-31); Chloride 103 mmol/L (98-107); Globulin 2.5 g/dL (2.4-3.5); Glucose 137 mg/dL (83-110); Potassium 3.6 mmol/L (3.5-5.1); Protein, Total 5.7 g/dL (5.8-8.1); Sodium 135 mmol/L (136-145)
[2021-02-08] MEDS: metFORMIN 500 MG TAB PO SCH (08:33)
[2021-02-08] MEDS: Meclizine HCl 25 MG TAB PO SCH (08:33)
[2021-02-08] MEDS: Senokot S 8.6-50 MG TAB PO SCH (08:34)
[2021-02-08] MEDS ORDERED: Polyethylene Glycol 3350 17 GM Packet PO SCH (09:00)
[2021-02-08] MEDS ORDERED: Atorvastatin Calcium 10 MG TAB PO SCH (09:00)
[2021-02-08] MEDS ORDERED: Pregabalin 25 MG CAP PO SCH (09:00)
[2021-02-08] MEDS ORDERED: Lisinopril 10 MG TAB PO SCH (09:00)
[2021-02-08 16:45] VITALS: BP 120/66; TEMP 98.3
== END 2021-02-08 16:51 | disposition home or self-care (01) | DRG 496 ==
LOC: ERS 09:01 → SDC 11:03 → SURG A 11:04 → SURG B 14:46 → ERHOLD 21:49 → SURG B 21:51
PROVIDERS: ADMIT Surgery; ATTEND Surgery
PROC: 0PSH04Z Reposition Right Radius with Internal Fixation Device, Open Approach (ICD-10-PCS; principal; 2021-02-07)
PROC: 0PPH04Z Removal of Internal Fixation Device from Right Radius, Open Approach (ICD-10-PCS; 2021-02-07)
PROC: 0PSK04Z Reposition Right Ulna with Internal Fixation Device, Open Approach (ICD-10-PCS; 2021-02-07)
DX: S52.391A Other fracture of shaft of radius, right arm, initial encounter for closed fracture (principal); Z68.1 Body mass index [BMI] 19.9 or less, adult; S52.591A Other fractures of lower end of right radius, initial encounter for closed fracture; Z20.822 Contact with and (suspected) exposure to COVID-19; S52.291A Other fracture of shaft of right ulna, initial encounter for closed fracture; I10 Essential (primary) hypertension; E11.9 Type 2 diabetes mellitus without complications; E78.5 Hyperlipidemia, unspecified; F41.9 Anxiety disorder, unspecified; R63.6 Underweight; W18.30XA Fall on same level, unspecified, initial encounter; Z88.6 Allergy status to analgesic agent; Y92.002 Bathroom of unspecified non-institutional (private) residence as the place of occurrence of the external cause; Z79.84 Long term (current) use of oral hypoglycemic drugs; Z79.899 Other long term (current) drug therapy
CPT/HCPCS: 36415; 36416; 70450; 71045; 76000; 80053; 85025; 86850; 86900; 86901; 93005; 96374; C1713; J0171; J0690; J1100; J1815; J2405; J2550; J2704; J3010; J3490; S0020; U0002

== ENCOUNTER 2021-08-18 10:44 | Outpatient (CLI) | payer MEDICARE | END 2021-08-18 10:45 | disposition home or self-care (01) | LOC: BICRAD 10:44 | PROVIDERS: ATTEND Family Medicine | DX: S81.802D Unspecified open wound, left lower leg, subsequent encounter (principal) ==

== ENCOUNTER 2021-09-04 19:55 | Emergency (ER) | payer MEDICARE ==
[2021-09-04 20:40] LABS: #Lymphocytes 0.6 thou/uL (1.20-3.40); #Monocytes 0.1 thou/uL (0.11-0.59); %Basophils 0.5 % (0.0-1.0); %Eosinophils 0.2 % (0.0-10.0); %Lymphocytes 9.2 % (21.0-51.0); %Monocytes 1.5 % (0.0-10.0); %Neutrophils 88.6 % (42.0-75.0); Hemoglobin 14.3 g/dL (12.0-16.0); Mean Corpuscular HGB CONC 35.1 g/dL (32.0-36.0); Mean Corpuscular Hemoglobin 31.2 pg (27.0-31.0); Mean Corpuscular Volume 88.9 fL (78.0-98.0); Mean Platelet Volume 7.3 fL (7.4-10.4); Platelet Count 246 thou/uL (130-400); RBC Distribution Width 12.6 % (11.5-14.5); White Blood Cell (WBC) Count 6.8 thou/uL (4.8-10.8)
[2021-09-04 21:02] LABS: ALT (SGPT) 15 U/L (8-55); AST (SGOT) 12 U/L (5-34); Albumin 4.2 g/dL (3.4-4.8); Alkaline Phosphatase 110 U/L (40-110); Anion Gap 17 mmol/L (10-20); BUN (Urea Nitrogen) 11 mg/dL (9.8-20.1); Bilirubin, Total 0.4 mg/dL (0.2-1.2); Calc. Creatinine Clearance 0 mL/min (70-130); Calcium 9.1 mg/dL (7.8-10.44); Carbon Dioxide 25 mmol/L (23-31); Chloride 98 mmol/L (98-107); Globulin 3.1 g/dL (2.4-3.5); Glucose 248 mg/dL (83-110); Potassium 3.6 mmol/L (3.5-5.1); Protein, Total 7.3 g/dL (5.8-8.1); Sodium 136 mmol/L (136-145)
[2021-09-04] MEDS ORDERED: Meclizine HCl 25 MG TAB ONE (22:00)
[2021-09-04 22:02] LABS: Bacteria/HPF None Seen HPF (None Seen); Bilirubin Negative (Negative); Blood, Urine Negative (Negative); Clarity Clear (Clear); Glucose, Urine (Dipstick) Greater than 1000 mg/dL (Negative); Ketone, Urine 20 mg/dL (Negative); Leukocyte Negative Leu/uL (Negative); Nitrite Negative (Negative); Protein, Urine (Dipstick) 100 mg/dL (Neg-Trace); RBC/HPF 0-3 HPF (0-3); Specific Gravity, Urine 1.024 (1.002-1.036); Squamous Epithelial None Seen HPF (0-3); Urobilinogen Normal mg/dL (Less than 2); WBC/HPF 0-3 HPF (0-3)
== END 2021-09-04 22:45 | disposition home or self-care (01) ==
LOC: ERS 19:55
DX: R42 Dizziness and giddiness (principal); R11.2 Nausea with vomiting, unspecified; H55.00 Unspecified nystagmus; I10 Essential (primary) hypertension; E11.9 Type 2 diabetes mellitus without complications; E78.5 Hyperlipidemia, unspecified; M81.0 Age-related osteoporosis without current pathological fracture
CPT/HCPCS: 36415; 36416; 51701; 70450; 80053; 81003; 81015; 84484; 85025; 93005